=== PATIENT | male | born 1990 | race African-American/Black ===

== ENCOUNTER → 2018-03-09 | Outpatient (CLI) | payer OTHER ==
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
== END | disposition home or self-care (01) ==
LOC: RAD 09:37
PROVIDERS: ATTEND Neuromusculoskeletal Medicine, Sports Medicine
DX: M54.5 Low back pain (principal); M25.571 Pain in right ankle and joints of right foot; Z87.828 Personal history of other (healed) physical injury and trauma
CPT/HCPCS: 72100; 73600